=== PATIENT | male | born 1990 | race Caucasian/White ===

== ENCOUNTER 2017-10-28 05:03 | Emergency (ER) | payer MEDICAID ==
[2017-10-28] MEDS ORDERED: OLANZapine DISINTEGR 10 MG TAB PO ONE (05:31)
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
[2017-10-28 05:51] LABS: PLATELET COUNT 214 10^3/uL (150-400)
[2017-10-28] MEDS ORDERED: ONDANSETRON 4 MG/2 ML VIAL IVP ONE (05:57)
[2017-10-28] MEDS ORDERED: ONDANSETRON DISINTEGRATING 4 MG TAB ONE (05:58)
[2017-10-28] MEDS ORDERED: ONDANSETRON DISINTEGRATING 4 MG TAB PO ONE (05:59)
[2017-10-28 16:52] VITALS: BP 109/64
== END 2017-10-28 17:15 ==
DX: R44.0 Auditory hallucinations (principal); F17.210 Nicotine dependence, cigarettes, uncomplicated
CPT/HCPCS: 80305; G0480